=== PATIENT | male | born 1940 | race Caucasian/White ===

== ENCOUNTER 2016-07-20 05:53 | Day surgery (SDC) | payer MEDICARE, BC ==
[2016-07-19 09:47] VITALS: BMI 25.7
[2016-07-20] VITALS (16 sets, daily range): BP systolic 154–181; BP diastolic 70–89; PULSE 64–72; RESP 15–20; Ht 165.1 cm; Wt 73.0 kg
[~2016-07-20] VITALS: Ht 165.1 cm; Wt 73.0 kg
[~2016-07-20 05:53] MED LIST: ASPI-535 PO; ATOR10TA23 PO; CLOP75TA19 PO; LOSA50TA2 PO; MELO-216 PO; TAMS-14 PO; ULT50 PO
[2016-07-20] MEDS ORDERED: PRED10TA PO (06:13)
[2016-07-20] MEDS ORDERED: POLYMYXIN/BACITRACIN 1L IRRIG ONE (06:40)
[2016-07-20] MEDS ORDERED: BUPIVACAINE 0.25% (MPF) 30 ML INJ ONE (06:40)
[2016-07-20] MEDS ORDERED: OMEP10CA4 PO (06:46)
[2016-07-20] MEDS ORDERED: CEFAZOLIN 1 GM INJ ONE (07:00)
[2016-07-20] MEDS ORDERED: BUPIVACAINE 0.25% (STERILE-PAK) 30 ML INJ INJ ONE (07:00)
--- NOTE | 2016-07-20 07:16 | HPN ---
Date/Time of Note Date/Time of Note DATE: 07/20/16 TIME: 07:16 Interval H&P Admission Note Pt. seen H&P reviewed: No system changes WOJCIECH GIANG MD Jul 20, 2016 07:16
[2016-07-20] MEDS ORDERED: MIDAZOLAM 1 MG/ML 2 ML INJ ONE (07:27)
[2016-07-20] MEDS ORDERED: GLYCOPYRROLATE 0.4 MG INJ ONE (08:27)
[2016-07-20] MEDS ORDERED: ETOMIDATE 20 MG INJ ONE (08:27)
[2016-07-20] MEDS ORDERED: ONDANSETRON 4 MG INJ ONE (08:27)
[2016-07-20] MEDS ORDERED: NEOSTIGMINE 3 MG/3 ML SYRINGE ONE (08:27)
[2016-07-20] MEDS ORDERED: ROCURONIUM 50 MG INJ ONE (08:27)
[2016-07-20] MEDS ORDERED: LIDOCAINE 2% (SDV) 5 ML INJ ONE (08:27)
[2016-07-20] MEDS ORDERED: MEPERIDINE 25 MG INJ IV PRN (08:30)
[2016-07-20] MEDS ORDERED: ONDANSETRON 4 MG INJ IV PRN ×2 (08:30→09:00)
[2016-07-20] MEDS ORDERED: FENTAnyl 50 MCG/ML VIAL IV PRN (08:30)
[2016-07-20] MEDS ORDERED: DIPHENHYDRAMINE 50 MG INJ IV PRN (08:30)
[2016-07-20] MEDS ORDERED: OXYCODONE/ACETAMINOPHEN (5/325) TAB PO PRN ×2 (09:00)
[2016-07-20] MEDS ORDERED: morphine 2 MG INJ IV PRN (09:00)
[2016-07-20] MEDS ORDERED: hydrALAzine 20 MG INJ IV ONE (09:30)
--- NOTE | 2016-07-20 09:46 | PREOPHP ---
DATE OF ADMISSION: 07/20/2016 CHIEF COMPLAINT: Preop for right inguinal hernia repair. HISTORY OF PRESENT ILLNESS: The patient is a 75-year-old male who has noticed an increasi ng bulge and discomfort in the right groin over the last 10 months. The patient has been able to pu sh the bump back in. No constipation. No bright red blood per rectum, melena, abdominal pain, diar hermilo, fever, chills or night sweats. The patient reports that he had a right inguinal hernia repair many years ago. The patient was seen in surgical consultation by Dr. Alexander and is scheduled for r epair on 07/20. The patient denies any chest pain, shortness of breath, dizziness, cold or flu symp toms. PAST MEDICAL HISTORY: Coronary artery disease, hypertension, hyperlipidemia, BPH, B12 deficiency, k idney stones, allergic rhinitis, diverticula, pilonidal cyst, polymyalgia rheumatica and thalassemia minor. OPERATIONS: Angioplasty with stent, coronary artery bypass grafting, appendectomy, hernia x3, left knee, nasal septum, uvuloplasty, TURP, tonsils, kidney stones. MEDICATIONS: 1. Prednisone ____ mg daily. 2. Meloxicam p.r.n. 3. Lipitor 10 mg daily. 4. Losartan 50 mg daily. 5. Aspirin 81 mg daily. ALLERGIES: THE PATIENT HAS NO KNOWN DRUG ALLERGIES. SOCIAL HISTORY: The patient denies any tobacco use. Occasional alcohol. He is , retired fr om the [employer]. FAMILY HISTORY: The patient's father at 62 from cancer. Mother at 85 from heart failure. The patient's brother alive with a history of prostate cancer. Daughter alive with a history of t halassemia minor, and he has an adopted son. REVIEW OF SYSTEMS: GENERAL: The patient denies any fever, chills, night sweats, change in weight or other general comp laints. HEENT: The patient denies any headache, congestion, rhinorrhea, sore throat. He has had some heari ng impairment where he uses hearing aids. Otherwise, no other HEENT complaints. RESPIRATORY: The patient denies any cough, wheeze, shortness of breath or other respiratory complai nts. CARDIOVASCULAR: The patient denies any chest pains, palpitations, dizziness or other cardiovascular complaints. GASTROINTESTINAL: The patient denies any abdominal pain, nausea, vomiting, bright red blood per rec silvia, melena or other GI symptoms. NEUROLOGIC: The patient denies any numbness, tingling, weakness or other neurologic symptoms. GENITOURINARY: The patient denies any dysuria, frequency or other symptoms. PHYSICAL EXAMINATION: VITAL SIGNS: Temperature 97, pulse 68, blood pressure 128/62. GENERAL APPEARANCE: This is a well-developed, well-nourished male in no acute distress. He appears nontoxic. HEENT: Normocephalic, atraumatic. Sclerae anicteric. TMs are clear. Oropharynx is clear. NECK: Supple. No adenopathy, no thyromegaly, no bruits. LUNGS: Clear to auscultation. CARDIAC: Regular rate and rhythm. ABDOMEN: Bowel sounds are present. Abdomen soft, nontender, nondistended. EXTREMITIES: Without cyanosis, clubbing or edema. GENITOURINARY: The patient is normal male. Testes descended. No mass lesion, DC or adenopathy. T here is a reducible right inguinal hernia. NEUROLOGICAL: The patient is awake and alert, oriented x4 with no focal neurologic findings. IMPRESSION: 1. Right inguinal hernia, reducible. 2. Coronary artery disease. 3. Polymyalgia rheumatica. 4. Hypertension. 5. Hyperlipidemia. 6. Thalassemia minor. PLAN: Preop labs, EKG, chest x-ray, cardiology clearance. The patient has an appointment on the 6t h. If above okay, the patient is okay for surgery. Will hold aspirin, blood thinners prior to surg dianne. Continue his other treatment. The patient to take stress dose of prednisone 30 mg with sips o f water on morning of surgery and q.a.m. for 4 days total, then to resume ____ mg daily subsequently . The patient will follow up postoperatively. ADDENDUM: Data reviewed. The patient saw Cardiology. Okay to proceed with the procedure. Chest x -ray: No acute disease. EKG: Normal sinus rhythm, no acute changes. Labs notable for glucose of 130. White count 12.3, hemoglobin 11.8. The patient with history of thalassemia minor. Increased glucose and WBC felt likely to be due to prednisone. The patient medically stable to proceed with h is proposed procedure. Dictated By: SKYLER GARLAND/LYLA Conf#: [id number] [facility]#: [id number]
--- NOTE | 2016-07-20 10:16 | OPR ---
DATE OF OPERATION: 07/20/2016 PREOPERATIVE DIAGNOSIS: Recurrent right inguinal hernia without obstruction. . POSTOPERATIVE DIAGNOSIS: Recurrent right inguinal hernia without obstruction (indirect). OPERATION PERFORMED: 1. Repair with extra-large plug. 2. Right inguinal nerve block. SURGEON: WOJCIECH GIANG MD ANESTHESIA: General. ANESTHESIOLOGIST: Ham López MD. OPERATIVE REPORT: After satisfactory general anesthesia was achieved, the abdomen was prepped and d raped in the usual fashion. A transverse right suprapubic groin incision was made and carried down to the level of the external oblique, which was opened in the direction of its fibers. The cord was retracted and preserved. There was an indirect sac which was dissected to its base at the internal ring. The sac was reduced and the reduction was maintained by placement of an extra-large plug sec ured circumferentially with interrupted 3-0 Vicryl suture. Next, the flat portion of the mesh was c ut and fashioned to fit in the floor of the canal as an overlay. It was anchored at the pubic tuber adina with 2-0 Novafil, laterally to inguinal ligament with interrupted 2-0 Novafil, and medially to c onjoined tendon with interrupted 2-0 Novafil. The mesh distal to the cord was reconstituted with a single suture of 2-0 Novafil creating a new internal ring of appropriate size. The cord was then re placed beneath the external oblique, which was closed with a running 3-0 Vicryl suture. Next, a rig ht inguinal nerve block was performed. Then 10 mL of 0.25% plain Marcaine were injected into the fa scia 1 cm medial and inferior to the right anterior iliac spine. Local anesthetic 10 mL were inject ed directly into the wound. Louise's fascia was closed with interrupted 3-0 Vicryl suture and skin closed with running 4-0 subcuticular Vicryl. Operative blood loss less than 10 mL. Sponge and need le counts were reported as correct x2. The patient tolerated the procedure well and without incident or complication. Dictated By: WOJCIECH CASTILLO/LYLA Conf#: [id number] [facility]#: [id number] CC: SKYLER MELO MD;*EndCC*
== END 2016-07-20 11:11 | disposition home or self-care (01) ==
LOC: SDS 05:53
PROVIDERS: ATTEND Surgery
DX: K40.91 Unilateral inguinal hernia, without obstruction or gangrene, recurrent (principal); I25.10 Atherosclerotic heart disease of native coronary artery without angina pectoris; Z95.5 Presence of coronary angioplasty implant and graft; Z95.1 Presence of aortocoronary bypass graft; I10 Essential (primary) hypertension; E78.5 Hyperlipidemia, unspecified; N40.0 Benign prostatic hyperplasia without lower urinary tract symptoms; M35.3 Polymyalgia rheumatica; D56.3 Thalassemia minor; Z79.82 Long term (current) use of aspirin; Z87.442 Personal history of urinary calculi; E11.9 Type 2 diabetes mellitus without complications; J44.9 Chronic obstructive pulmonary disease, unspecified; I25.2 Old myocardial infarction
CPT/HCPCS: 49520; C1781; J0360; J0690; J2250; J2405; J2710; J3010